=== PATIENT | male | born 1995 | race Caucasian/White ===

== ENCOUNTER 2022-06-16 22:51 | Emergency (ER) | payer OTHER ==
[~2022-06-16] VITALS: Ht 182.9 cm; Wt 136.1 kg
[2022-06-16 23:19] VITALS: BP 137/75
[2022-06-16] MEDS ORDERED: DOXYCYCLINE HYCLATE (100 MG) 100 MG TABLET PO ONE (23:30)
[2022-06-16] MEDS ORDERED: CEFTRIAXONE 500 MG VIAL IM ONE (23:30)
[2022-06-16] MEDS ORDERED: DOXYCYCLINE HYCLATE (100 MG) 100 MG TABLET ONE (23:32)
[2022-06-16] MEDS ORDERED: CEFTRIAXONE 500 MG VIAL ONE (23:32)
[2022-06-16] MEDS ORDERED: LIDOCAINE /MPF 1% VIAL 5 ML VIAL ONE (23:33)
[2022-06-16] MEDS ORDERED: DOXY-326 PO (23:42)
--- NOTE | 2022-06-16 23:50 | NUR ---
INFLUENZA SWAB COLLECTED
[2022-06-17 00:04] LABS: BILIRUBIN,URINE NEGATIVE (NEGATIVE); COLOR,URINE DARK YELLOW (YELLOW); LEUKOCYTE ESTERASE ,URINE NEGATIVE (NEGATIVE); NITRITE, URINE NEGATIVE (NEGATIVE); PROTEIN,URINE TRACE mg/dl (NEGATIVE); UGLUCOSE NEGATIVE (NEGATIVE)
--- NOTE | 2022-06-17 00:05 | NUR ---
Patient discharged to home in stable condition. Written and verbal after care instructions given. Patient verbalizes understanding of instruction.
[2022-06-17 00:06] LABS: BACTERIA,URINE Rare /HPF (None Seen)
[2022-06-17 00:07] LABS: SQUAMOUS EPITHELIAL CELL,UR Few /HPF (None Seen)
== END 2022-06-17 00:05 | disposition home or self-care (01) ==
LOC: ER 22:56
DX: J02.9 Acute pharyngitis, unspecified (principal); A64 Unspecified sexually transmitted disease; Z20.822 Contact with and (suspected) exposure to COVID-19
CPT/HCPCS: 99283; 96372; 87804; 81001; 87491; 87591; J0696; J3490; C9803; U0003

== ENCOUNTER 2024-02-10 15:46 | Emergency (ER) | payer OTHER ==
[~2024-02-10] VITALS: Ht 182.9 cm; Wt 136.1 kg
[~2024-02-10 15:46] MED LIST: DOXY-326 PO
[2024-02-10 16:19] VITALS: BP 157/104; TEMP 98; O2SAT 98
== END 2024-02-10 16:59 | disposition home or self-care (01) ==
LOC: ER 15:51
DX: S61.412A Laceration without foreign body of left hand, initial encounter (principal); W26.0XXA Contact with knife, initial encounter; Y93.G3 Activity, cooking and baking; Y92.090 Kitchen in other non-institutional residence as the place of occurrence of the external cause; Y99.8 Other external cause status